=== PATIENT | female | born 1955 | race African-American/Black ===

== ENCOUNTER 2016-10-15 10:02 | Emergency (ER) ==
[2016-10-15] MEDS ORDERED: ASPIRIN PO STA (10:07)
--- NOTE | 2016-10-15 10:19 | EKG Report ---
Test Performed on : 10/15/2016 10:06:05 AM Test Reason : CHEST PAIN Blood Pressure : / mmHG Vent. Rate : 071 BPM Atrial Rate : 071 BPM P-R Int : 162 ms QRS Dur : 086 ms QT Int : 378 ms P-R-T Axes : 071 067 052 degrees QTc Int : 410 ms Normal sinus rhythm. Nonspecific ST abnormality Abnormal ECG When compared with ECG of 14-JUN-2014 15:49, Questionable change in QRS axis Non-specific change in ST segment in Inferior leads T wave inversion no longer evident in Inferior leads Unconfirmed Result
[2016-10-15 10:24] LABS: MANUAL DIFF NEEDED? NO
[2016-10-15 10:31] LABS: BASO% 0.6 % (0.0-0.8); EOS# 0.09 X1000 (0.0-0.7); EOS% 1.1 % (0.0-10.0); HEMATOCRIT 39.9 % (37.0-47.0); IMM GRAN# 0.01 X1000 (0.0-0.04); IMM GRAN% 0.1 % (0.0-0.5); LYMPH% 29.8 % (20.5-51.1); MCH 29.1 PG (27-31); MCHC 32.6 g/dL (33-37); MCV 89.3 FL (81-99); MONO# 0.68 X1000 (0.11-0.59); MONO% 8.4 % (1.7-9.3); MPV 10.1 FL (7.4-10.4); PLT 225 X1000 (130-400); RBC 4.47 XMIL (4.2-5.4)
--- NOTE | 2016-10-15 10:35 | PROVIDER DOCUMENTATION ---
HPI-Chest Pain - General Chief Complaint: Chest Pain Stated Complaint: LEFT ARM NUMBNESS/NAUSEA/CP Time Seen by Provider: 10/15/16 10:39 Source: patient, family Allergies/Adverse Reactions: Patient Allergies Allergy/AdvReac Type Severity Reaction Status Date / Time celecoxib [From Celebrex] AdvReac Mild ABDOMINAL Verified 08/29/13 11:57 PAIN Home Medications: Alprazolam 0.5 mg PO TID PRN PRN 08/29/13 Aspirin 81 mg PO DAILY 08/29/13 Azilsartan Medoxomil [Edarbi] 40 mg PO HS 08/29/13 Hydrochlorothiazide 12.5 mg PO DAILY 08/29/13 Hydrocodone/APAP 10 mg/325 mg [[place]-10] 1 each PO 4XDAY PRN PRN 08/29/13 Nitroglycerin [Nitrostat] 0.4 mg SL PRN PRN 08/29/13 Potassium Chloride [Klor-Con M20] 20 meq PO DAILY 08/29/13 Pravastatin Sodium 20 mg PO HS 08/29/13 Sennosides/Docusate Sodium [Senna S Tablet] 1 each PO HS 08/29/13 Verapamil S.r. [Isoptin Sr] 180 mg PO HS 08/29/13 - History of Present Illness-CP Nature of Presenting Problem: Went to See PCP with left arm,jaw and back pain with chest discomfort sent to ER. Chest substernal and left lateral into back achy and pressure in nature. Thursday started. Took aspirin no relief. Nothing makes it better; bending over makes chest burn. Symptoms of nausea and sob. Reports has hx of Acid Reflux, Cardiac stents, and right lung cancer. Location: reports: substernal Chest Pain Radiation: reports: back Quality of Pain: reports: aching, pressure Severity in ED: moderate Onset/Duration: 4 days ago Timing: still present Nitro Today/Relief: no nitro taken today Aspirin Treatment Today: 325 mg x 1, provided by ED Similar Symptoms Previously?: Yes Recently Seen Here or By Another Healthcare Provider: No Review of Systems - Adult - REVIEW OF SYSTEMS - ADULT Constitutional: denies: chills, fever, fatique Cardiovascular: reports: chest pain. denies: irregular heart rate, orthopnea, syncope Respiratory: reports: shortness of breath. denies: cough, pleurisy, wheezing Gastrointestinal: reports: nausea. denies: abdominal pain, diarrhea, vomiting Past History - Adult - PAST MEDICAL HISTORY-ADULT Review of Records: reports: Nursing Assessment Review, Medications Reviewed Major Childhood Illnesses: reports: denies history Cardiovascular: reports: cardiac disease, CAD, HTN, hyperlipidemia Respiratory: reports: COPD, cancer Gastrointestinal: reports: denies history Musculoskeletal: reports: denies history Neurological: reports: denies history Psychiatric: reports: denies history Endocrine/Immune: reports: denies history - PRIOR SURGERIES/PROCEDURES Surgical/Procedure History: reports: cardiac stent, orthopedic (extremity) ( left knee sx ligament), other (right lobectomy) - PRIOR HOSPITALIZATIONS Prior Hospitalizations: reports: none - IMMUNIZATION STATUS Childhood Immunizations: UTD Flu Vaccine: UTD - FAMILY HISTORY Family History: reviewed, not pertinent - SOCIAL HISTORY Smoking: quit greater than 1 year Substance Use: none/never Alcohol Use Frequency: never Physical Exam-General - CONSTITUTIONAL General Appearance: appears well, alert, no apparent distress - EYES Eyes: PERRL/EOMI, pink conjunctivae - HEAD, EARS, NOSE, MOUTH & THROAT HENMT: normocephalic/atraumatic, moist mucous membranes, normal ENT inspection - NECK Neck: non-tender - RESPIRATORY Respiratory: lungs clear, no pleuratic chest pain, no respiratory distress, no accessory muscle use, decreased breath sounds (right lower). negative: chest non-tender (reproducable palpation) - CARDIOVASCULAR Cardiovascular: normal peripheral pulses, systolic murmur (2/6 murmur) - GASTROINTESTINAL (ABDOMEN) Abdominal Exam: normal bowel sounds, non tender, soft, no organomegaly, no pulsatile mass - MUSCULOSKELETAL Back Exam: other (large scar right posterior) Extremity: normal range of motion, non-tender, pedal edema (generalized edema to ankles) - SKIN Integumentary: normal color, normal turgor, warm/dry - NEUROLOGIC Neurologic: grossly normal, no motor/sensory deficits - PSYCHIATRIC Psych/Mental Status: normal mood/affect, normal thought content, normal thought process, oriented x 3 Progress - PLAN OF CARE/RESULTS Progress/Plan/Lab Results: Orders Category Date Time Status Cardiac Monitoring DIRECTED Care 10/15/16 10:08 Active Oxygen Therapy- ED Nursing DIRECTED Care 10/15/16 10:08 Active Saline Loc NOW Care 10/15/16 10:08 Active CHEST-2 VIEWS [RAD] Stat Exams 10/15/16 10:08 Taken CBC WITH ELECTRONIC DIFF [HEME] Stat Lab 10/15/16 10:23 Completed CK PROFILE [SP CHEM] Stat Lab 10/15/16 10:23 Received COMPREHENSIVE METABOLIC PANEL [CHEM] Stat Lab 10/15/16 10:23 Received MAGNESIUM [CHEM] Stat Lab 10/15/16 10:23 Received PRO B-NATRIURETIC PEPTIDE Stat Lab 10/15/16 10:[address] Re[address]IME WITH INR PL [COAG] Stat Lab 10/15/16 10:[address] [COAG] Stat Lab 10/15/16 10:23 Received TROPONIN T Stat Lab 10/15/16 10:23 Received Aspirin Med 10/15/16 10:07 Discontinued 325 mg PO STAT STA EKG [EKG] Stat Ther 10/15/16 10:08 Draft Vital Signs - 24 hr 10/15/16 10:11 Temperature 99.2 F Pulse Rate 83 Respiratory 18 Rate Blood Pressure 197/75 O2 Sat by Pulse 100 Oximetry Laboratory Tests 10/15/16 10:23 WBC 8.06 RBC 4.47 Hgb 13.0 Hct 39.9 MCV 89.3 MCH 29.1 MCHC 32.6 L RDW Std Deviation 13.0 Plt Count 225 MPV 10.1 Immature Gran % (Auto) 0.1 Neut % (Auto) 60.0 Lymph % (Auto) 29.8 [place] % (Auto) 8.4 Eos % (Auto) 1.1 Baso % (Auto) 0.6 Immature Gran # (Auto) 0.01 Neut # (Auto) 4.83 Lymph # (Auto) 2.40 [place] # (Auto) 0.68 H Eos # (Auto) 0.09 Baso # (Auto) 0.05 Laboratory Tests 10/15/16 10/15/16 10/15/16 10:23 10:23 10:23 WBC RBC Hgb Hct MCV MCH MCHC RDW Std Deviation Plt Count MPV Immature Gran % (Auto) Neut % (Auto) Lymph % (Auto) [place] % (Auto) Eos % (Auto) Baso % (Auto) Immature Gran # (Auto) Neut # (Auto) Lymph # (Auto) [place] # (Auto) Eos # (Auto) Baso # (Auto) PT INR APTT (Factor Assay) Sodium 140 Potassium 3.3 L Chloride 103 Carbon Dioxide 29 Anion Gap 9 BUN 11 Creatinine 0.8 Estimated GFR/1.73 m2 > 60 BUN/Creatinine Ratio 14 Glucose 105 H Calculated Osmolality 279 Calcium 9.6 Magnesium 1.6 Total Bilirubin 0.50 AST 28 ALT 21 Alkaline Phosphatase 77 Creatine Kinase 187 H Creatine Kinase Index 1.2 CK-MB (CK-2) 2.32 Troponin T < 0.010 Eqm-X-Swetjlfotlf Pept 125 Total Protein 8.1 Albumin 4.3 Globulin 4.0 Albumin/Globulin Ratio 1.0 10/15/16 10/15/16 10:23 10:23 WBC 8.06 RBC 4.47 Hgb 13.0 Hct 39.9 MCV 89.3 MCH 29.1 MCHC 32.6 L RDW Std Deviation 13.0 Plt Count 225 MPV 10.1 Immature Gran % (Auto) 0.1 Neut % (Auto) 60.0 Lymph % (Auto) 29.8 [place] % (Auto) 8.4 Eos % (Auto) 1.1 Baso % (Auto) 0.6 Immature Gran # (Auto) 0.01 Neut # (Auto) 4.83 Lymph # (Auto) 2.40 [place] # (Auto) 0.68 H Eos # (Auto) 0.09 Baso # (Auto) 0.05 PT 13.4 INR 0.99 APTT (Factor Assay) 28.4 Sodium Potassium Chloride Carbon Dioxide Anion Gap BUN Creatinine Estimated GFR/1.73 m2 BUN/Creatinine Ratio Glucose Calculated Osmolality Calcium Magnesium Total Bilirubin AST ALT Alkaline Phosphatase Creatine Kinase Creatine Kinase Index CK-MB (CK-2) Troponin T Hsn-W-Imefbfmvzjm Pept Total Protein Albumin Globulin Albumin/Globulin Ratio - EKG 1 Time of EKG reading by physician:: 10:06 EKG Read and Signed by:: Carrol Patel Jr EKG Interpretation (*Must complete 3 of following elements*): Abnormal Rate: 71 Rhythm: nsr [place]: normal ST Wave: non-specific ST changes - XRAY 1 XRAY: Bilateral XRAY Study: Chest Impression: Abnormal (post surg change right lung inc density right hilar region and right base could rep right perihilar infiltrate or adenopathy or mass. Crrel clinically CT thorax could be considered.) - CT/MRI 1 CT Study: Abdomen, Pelvis, Thorax Impression: Abnormal Comparison with other Films: no changes (Chest xray stable surgical chantges to the right lungs. stable linear scarring at the right apex. no mass no infiltrate ;) Departure - Departure Time of Disposition Order: 13:45 DIAGNOSIS: GERD (gastroesophageal reflux disease) Qualifiers: Esophagitis presence: without esophagitis Qualified Code(s): K21.9 - Gastro- esophageal reflux disease without esophagitis Chest pain Qualifiers: Chest pain type: unspecified Qualified Code(s): R07.9 - Chest pain, unspecified Disposition: HOME 01 Certified Medical Emergency: Emergent Condition: Stable Additional Instructions: Follow up with pcp ED Follow Up Instructions: You have been treated by a care provider in the Emergency Department. These instructions are being provided to you so you can have an understanding of how to care for yourself upon discharge. Upon discharge from the Emergency Department, you are responsible for making arrangements for follow-up care by a physician of your choice. Take all prescribed medications as directed. Return to the Emergency Department immediately for any new or worsening symptoms. You may call the Physician Referral phone number at [phone] to obtain a list of Physicians who are taking new patients. Referrals: Artis Duron MD [Primary Care Provider] - Attestation - Scribe Verification/Attestation Scribe:: Amos Raya Acting as Scribe for:: Carrol Patel Jr Scribe documention review:: This chart was documented by a scribe and accurately reflects the service the provider performed and the decisions made by the provider.
[2016-10-15 10:42] LABS: INR 0.99 (0.86-1.15); PROTIME 13.4 Seconds (12.1-15.5); PTT PL 28.4 Seconds (22.6-43.9)
[2016-10-15] MEDS ORDERED: MORPHINE IV ONE (10:49)
[2016-10-15] MEDS ORDERED: ZOFRAN IV ONE (10:49)
[2016-10-15] MEDS ORDERED: G.I. COCKTAIL PO ONE (10:50)
--- NOTE | 2016-10-15 10:54 | Diag Imaging Result Document ---
PROCEDURE NAME: CHEST-2 VIEWS - 10/15/2016 CHEST, TWO VIEWS: INDICATION: Shortness of breath. COMPARISON: 06/14/2014. FINDINGS: There is borderline cardiomegaly. There are stable appearing granulomata of the left lung. There are postsurgical changes in the right lung with surgical clips in the right hilar region and increased linear density in the right apex compatible with scarring. The right hilum appears more prominent today and the right infrahilar markings are slightly more prominent as well. The findings are suggestive of a right perihilar infiltrate. Cannot exclude developing right hilar adenopathy or even mass. Clinical correlation and follow-up is recommended. CT scan could be considered. IMPRESSION: Postsurgical changes in the right lung with increasing density in the right hilum and right lung base. The findings are suspicious for perihilar infiltrate versus adenopathy versus mass. Correlate clinically. CT thorax could be considered.
[2016-10-15 10:56] LABS: AGAP 9; ALBUMIN 4.3 g/dL (3.5-5.0); ALKALINE PHOSPHATASE 77 U/L (32-104); BUN 11 mg/dL (8-22); CALCIUM 9.6 mg/dL (8.8-10.2); CHLORIDE 103 mmol/L (98-107); COSMO 279; GOT 28 U/L (10-30); GPT 21 U/L (10-36); MAGNESIUM 1.6 mg/dL (1.5-2.7); POTASSIUM 3.3 mmol/L (3.5-5.1); SODIUM 140 mmol/L (136-145); TCO2 29 mmol/L (25-35); TOTAL PROTEIN 8.1 g/dL (6.3-8.3)
[2016-10-15 11:01] LABS: CK PROFILE 187 U/L (24-173)
[2016-10-15 11:52] LABS: CK INDEX 1.2 (0.0-2.5); CK-MB 2.32 ng/mL (0.0-5.0)
--- NOTE | 2016-10-15 13:02 | Diag Imaging Result Document ---
PROCEDURE NAME: THORAX/ABDOMEN/PELVIS - 10/15/2016 CT CHEST WITH INTRAVENOUS CONTRAST: COMPARISON: Chest x-ray 10/15/2016, chest CT 06/15/2014. FINDINGS: Stable surgical changes to the right lung. Stable linear scarring at the right apex. No mass or adenopathy. No focal infiltrates. Heart size remains borderline. IMPRESSION: No acute disease or change from prior. CT ABDOMEN AND PELVIS WITH INTRAVENOUS CONTRAST: COMPARISON: None. FINDINGS: The liver, gallbladder, spleen, pancreas, adrenals, and kidneys are normal. No adenopathy. No bowel obstruction or inflammation. Normal appendix. Urinary bladder and rectum are normal. Bony structures are intact. IMPRESSION: Negative exam.
[2016-10-15 14:12] VITALS: BP 149/63
== END 2016-10-15 14:20 | disposition home or self-care (01) ==
LOC: P.ED 10:02
DX: K21.9 Gastro-esophageal reflux disease without esophagitis (principal); R07.2 Precordial pain; M79.602 Pain in left arm; R68.84 Jaw pain; M54.9 Dorsalgia, unspecified; R06.02 Shortness of breath; R01.1 Cardiac murmur, unspecified; R60.9 Edema, unspecified; Z79.899 Other long term (current) drug therapy; I25.10 Atherosclerotic heart disease of native coronary artery without angina pectoris; R11.0 Nausea; R94.31 Abnormal electrocardiogram [ECG] [EKG]; I10 Essential (primary) hypertension; E78.5 Hyperlipidemia, unspecified; Z85.118 Personal history of other malignant neoplasm of bronchus and lung; J44.9 Chronic obstructive pulmonary disease, unspecified; Z95.5 Presence of coronary angioplasty implant and graft; Z87.891 Personal history of nicotine dependence; Z79.82 Long term (current) use of aspirin
CPT/HCPCS: 36415; 71020; 71260; 74177; 80053; 82550; 82553; 83735; 83880; 84484; 85025; 85610; 85730; 93005; 96374; 96375; J2270; J2405; Q9967